=== PATIENT | male | born 1965 | race Caucasian/White ===

== ENCOUNTER 2016-12-04 06:49 | Inpatient (IN) | payer OTHER ==
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
[2016-12-04 07:12] LABS: I-STAT POTASSIUM 3.7 MMOL/L (3.5-4.9)
[2016-12-04 07:13] LABS: AUTOMATED NEUTROPHIL # 3.3 TH/MM3 (1.8-7.7); BASOPHIL # 0.1 TH/MM3 (0-0.2); BASOPHIL % 0.8 % (0.0-2.0); EOSINOPHIL # 0.2 TH/MM3 (0-0.4); EOSINOPHIL % 2.4 % (0.0-4.0); HEMATOCRIT 43.7 % (39.0-51.0); HEMO FLAGS DIFF FINAL; LYMPH % 34.9 % (9.0-44.0); LYMPHOCYTE # 2.3 TH/MM3 (1.0-4.8); MEAN CELL VOLUME 82.9 FL (80.0-100.0); MEAN CORPUSCULAR HEMOGLOBIN 28.8 PG (27.0-34.0); MEAN CORPUSCULAR HGB CONC 34.8 % (32.0-36.0); MONO % 11.1 % (0.0-8.0); NEUT % 50.8 % (16.0-70.0); PLATELET COUNT 215 TH/MM3 (150-450); RED BLOOD COUNT 5.27 MIL/MM3 (4.50-5.90); RED CELL DISTRIBUTION WIDTH 13.5 % (11.6-17.2); WHITE BLOOD COUNT 6.5 TH/MM3 (4.0-11.0)
[2016-12-04] MEDS ORDERED: IOHEXOL 350 MG/ML 10 ML VIAL (for RAD DIAG) IV ONE (07:19)
[2016-12-04 07:20] LABS: APTT (PATIENT) 27.3 SEC (24.3-30.1); PROTHROMBIN TIME - PATIENT 10.5 SEC (9.8-11.6)
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
[2016-12-04 07:30] VITALS: BP 126/74; PULSE 72; RESP 18; O2SAT 99
[2016-12-04] MEDS ORDERED: ONDANSETRON HCL 4 MG/2 ML VIAL IV PRN (07:30)
[2016-12-04] MEDS ORDERED: SODIUM CHLORIDE 0.9% FLUSH 10 ML FLUSH IV FLUSH PRN (07:30)
[2016-12-04] MEDS ORDERED: ACETAMINOPHEN/HYDROcodone 325 MG/5 MG TAB PO PRN (07:30)
[2016-12-04] MEDS ORDERED: HYDROmorphone HCL PF 1 MG/ML VIAL IVP PRN (07:30)
[2016-12-04] MEDS ORDERED: MISCELLANEOUS NURSING INFORMATION XX SCH (07:30)
[2016-12-04] MEDS ORDERED: CHLORHEXIDINE GLUCONATE 2 % 1 PACK (2 CLOTHS) TOP PRN (07:30)
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
[2016-12-04 09:00] VITALS: BP 128/70; PULSE 77; RESP 18; O2SAT 99
[2016-12-04] MEDS: ENOXAPARIN SODIUM 30 MG/0.3 ML SYRINGE SQ SCH ×2 (09:00→22:21)
[2016-12-04 10:00] VITALS: BP 131/78; PULSE 74; RESP 18; O2SAT 99
[2016-12-04] MEDS: ACETAMINOPHEN/HYDROcodone 325 MG/5 MG TAB PO PRN ×2 (10:59→17:24)
[2016-12-04 11:29] VITALS: BP 135/77; PULSE 73; RESP 19; TEMP 96.8; O2SAT 96
[2016-12-04 15:21] VITALS: BP 148/92; PULSE 76; RESP 19; TEMP 95.6; O2SAT 98
[2016-12-04 20:15] VITALS: BP 130/76; PULSE 64; RESP 17; TEMP 97.3; O2SAT 96
[2016-12-04] MEDS ORDERED: MAGNESIUM HYDROXIDE SUSP 30 ML CUP PO SCH (21:00)
[2016-12-04] MEDS ORDERED: FAMOTIDINE 20 MG TAB PO SCH (21:00)
[2016-12-04] MEDS: DOCUSATE SODIUM 100 MG CAP PO SCH (22:22)
[2016-12-05 00:10] VITALS: BP 155/91; PULSE 66; RESP 17; TEMP 97; O2SAT 95
[2016-12-05] MEDS ORDERED: CHLORHEXIDINE GLUCONATE 2 % 1 PACK (2 CLOTHS) TOP SCH (04:00)
[2016-12-05 04:20] VITALS: BP 131/80; PULSE 68; RESP 17; TEMP 97.4; O2SAT 98
[2016-12-05 08:00] VITALS: BP 107/74; PULSE 74; RESP 18; TEMP 97.1; O2SAT 98
[2016-12-05] MEDS: ENOXAPARIN SODIUM 30 MG/0.3 ML SYRINGE SQ SCH (08:46)
[2016-12-05] MEDS: DOCUSATE SODIUM 100 MG CAP PO SCH (08:46)
[2016-12-05] MEDS: ACETAMINOPHEN/HYDROcodone 325 MG/5 MG TAB PO PRN ×2 (10:08→17:11)
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
[2016-12-05 12:07] VITALS: BP 118/70; PULSE 70; RESP 16; TEMP 97.4; O2SAT 99
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
[2016-12-05 16:15] VITALS: BP 112/70; PULSE 78; RESP 18; TEMP 98.3; O2SAT 99
[2016-12-06] MEDS ORDERED: PERC5TAB12 PO (10:42)
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
== END 2016-12-05 20:34 | disposition home or self-care (01) | DRG 90 ==
LOC: NEPI 06:49 → NEDA 07:21 → EDBD 07:21 → N06B 10:53
PROVIDERS: ADMIT Surgery Trauma Surgery; ATTEND Surgery Trauma Surgery
DX: S06.0X0A Concussion without loss of consciousness, initial encounter (principal); M48.02 Spinal stenosis, cervical region; S00.81XA Abrasion of other part of head, initial encounter; V89.2XXA Person injured in unspecified motor-vehicle accident, traffic, initial encounter; Y92.410 Unspecified street and highway as the place of occurrence of the external cause
CPT/HCPCS: 70450; 70486; 71010; 71260; 72125; 72170; 74177; 82435; 82565; 82947; 84132; 84295; 84520; 85025; 85610; 85730; 86850; 86900; 86901; 90471; 94150; 99291; G0390; J1650; Q9967